=== PATIENT | female | born 1950 | race Caucasian/White ===

== ENCOUNTER → 2017-01-24 | Outpatient (CLI) | payer MEDICARE | END | disposition home or self-care (01) | LOC: RAD.S 15:20 | DX: Z12.31 Encounter for screening mammogram for malignant neoplasm of breast (principal); R92.1 Mammographic calcification found on diagnostic imaging of breast ==

== ENCOUNTER 2017-01-31 06:56 | Day surgery (SDC) | payer MEDICARE ==
[~2017-01-31] VITALS: Ht 175.3 cm; Wt 99.2 kg
--- NOTE | 2017-02-01 09:18 | OR ---
ADMIT: 01/31/2017 RM/LOC: [facility] MR#: [id number] [address] [id number] NIKHIL VELOZ [address] [place] [address] Operative/Delivery Room Report SEX: F AGE: 66 : 1950 SURGERY DATE: 01/31/2017 SURGEON: Arnaldo Wilson MD PROCEDURE: Total colonoscopy. PREOPERATIVE DIAGNOSIS: Screening colonoscopy. POSTOPERATIVE DIAGNOSIS: Normal total colonoscopy. DESCRIPTION OF PROCEDURE: The patient was brought to the procedure room, placed in left lateral decubitus position. Informed consent had been obtained preoperatively. The risks and benefits including, but not limited to, perforation, sedation, bleeding were discussed with the patient and agreed upon. All questions were answered, alternatives discussed. The patient agreed. TIVA was provided by Dr. Islas. Anal inspection, digital examination revealed no abnormalities or obstructing masses. Olympus videoendoscope, model CF-H180AL, was inserted into the rectum and advanced to the cecum using positional change and external pressure. The appendiceal orifice and ileocecal valve were identified. The valve was cannulated. The terminal ileum appeared normal for approximately 10 cm. The scope was slowly withdrawn through a normal cecum, ascending, transverse, descending, and sigmoid colon. Rectum likewise was normal. The scope was retroflexed. The anal verge appeared normal. The patient tolerated the procedure well. No complications were expected. There was no blood loss during the procedure. She will call me if she has any postoperative problems. I recommend she have repeat colonoscopy in 10 years unless signs or symptoms develop in the interval. Arnaldo Wilson MD/ krystyna JOB #: [id number] CC: Arnaldo Wilson, Attending Physician Jocy Mulligan, Family Physician Jocy Mulligan MD
== END 2017-01-31 10:53 | disposition home or self-care (01) ==
LOC: SSS
PROC: 0DJD8ZZ Inspection of Lower Intestinal Tract, Via Natural or Artificial Opening Endoscopic (ICD-10-PCS; principal; 2017-01-31)
DX: Z12.11 Encounter for screening for malignant neoplasm of colon (principal); Z98.890 Other specified postprocedural states